=== PATIENT | female | born 1990 | race Caucasian/White ===

== ENCOUNTER 2020-09-24 06:54 | Outpatient (NON) | payer OTHER, SELFPAY ==
[2020-09-25 13:09] LABS: SARS-CoV-2 RNA PCR Negative
== END 2020-09-24 06:55 ==
LOC: ANHCOVIDDT 07:05
DX: Z20.828 Contact with and (suspected) exposure to other viral communicable diseases (principal)
CPT/HCPCS: 87635; C9803; U0003